=== PATIENT | male | born 1965 | race African-American/Black ===

== ENCOUNTER 2022-11-30 21:07 | Emergency (ER) | payer MEDICAID, MEDICARE, OTHER | END 2022-12-01 01:15 | disposition home or self-care (01) | LOC: ERS 21:07 | DX: S20.211A Contusion of right front wall of thorax, initial encounter (principal); S50.01XA Contusion of right elbow, initial encounter; F17.210 Nicotine dependence, cigarettes, uncomplicated; W18.30XA Fall on same level, unspecified, initial encounter ==